=== PATIENT | female | born 1960 | race Caucasian/White ===

== ENCOUNTER → 2020-12-12 | Outpatient (CLI) | payer OTHER | LOC: KOH-I 14:30 | DX: R20.8 Other disturbances of skin sensation (principal) | CPT/HCPCS: 93922; 93925 ==

== ENCOUNTER → 2021-02-22 | Outpatient (CLI) | payer OTHER | LOC: KOH-I 15:47 | DX: F17.210 Nicotine dependence, cigarettes, uncomplicated (principal) | CPT/HCPCS: 71271 ==

== ENCOUNTER → 2021-05-01 | Outpatient (CLI) | payer MEDICARE, OTHER | LOC: RAD 12:08 | DX: M54.2 Cervicalgia (principal); M25.511 Pain in right shoulder; M25.512 Pain in left shoulder; M54.9 Dorsalgia, unspecified; M47.812 Spondylosis without myelopathy or radiculopathy, cervical region | CPT/HCPCS: 72040; 72070; 73030 ==

== ENCOUNTER → 2021-07-30 | Outpatient (CLI) | payer MEDICARE, OTHER | LOC: RAD 12:11 | DX: M54.50 Low back pain, unspecified (principal); M47.817 Spondylosis without myelopathy or radiculopathy, lumbosacral region; K59.00 Constipation, unspecified | CPT/HCPCS: 72100 ==

== ENCOUNTER → 2021-09-12 | Outpatient (CLI) | payer MEDICARE, OTHER | LOC: KOH-I 10:02 | DX: M21.41 Flat foot [pes planus] (acquired), right foot (principal); M51.26 Other intervertebral disc displacement, lumbar region | CPT/HCPCS: 72148 ==

== ENCOUNTER → 2022-01-07 | Outpatient (CLI) | payer MEDICARE, OTHER | LOC: EMI 16:28 | DX: M47.22 Other spondylosis with radiculopathy, cervical region (principal); M50.11 Cervical disc disorder with radiculopathy, high cervical region; M48.02 Spinal stenosis, cervical region | CPT/HCPCS: 72141 ==

== ENCOUNTER → 2022-01-24 | Outpatient (CLI) | payer MEDICARE, OTHER ==
[~2022-01-24] MED LIST: ADULT LOW DOSE81 MG PO; ALPRAZOLAM1 MG PO; CLARITIN10 MG PO; DESYREL 50 MG T50 MG PO; FOLIC ACID1 MG PO; IBU800 MG PO; ISOSORBIDE MONO30 MG PO; KEPPRA1000 MG PO; LASIX TAB 20 MG20 MG PO; NITROSTAT 0.40.4 MG SL; PROAIR HFA8.5 GM INH; RANEXA1000 MG PO; VENTOLIN/PROVE0.5 ML INH; VISTARIL 25 MG25 MG PO; VITAMIN B-121000 MCG PO; VITAMIN D3125 MCG PO; ZOLOFT100 MG PO
== END ==
LOC: KOH-I 09:50
DX: M50.03 Cervical disc disorder with myelopathy, cervicothoracic region (principal); M50.322 Other cervical disc degeneration at C5-C6 level; M48.02 Spinal stenosis, cervical region
CPT/HCPCS: 72125